=== PATIENT | male | born 1970 | race Caucasian/White ===

== ENCOUNTER 2016-10-20 19:53 | Emergency (ER) | payer SELFPAY ==
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
[2016-10-20] MEDS ORDERED: SODIUM CHLORIDE 0.9% 50ML 50 ML ONE (22:03)
[2016-10-20] MEDS: ENALAPRILAT INJ 1.25 MG/ML VIAL IV ONE (22:05)
[2016-10-20] MEDS ORDERED: LEVALBUTEROL NEBS 1.25 MG/3 ML VIAL NEB ONE (22:05)
[2016-10-20] MEDS ORDERED: SODIUM CHLORIDE 0.9% 1000ML 1,000 ML IVS ONE (22:49)
[2016-10-21 01:12] VITALS: BP 144/82; TEMP 99.8; O2SAT 95
[2016-10-21] MEDS: ENALAPRILAT INJ 1.25 MG/ML VIAL IV ONE (01:20)
== END 2016-10-20 23:50 | disposition short-term general hospital (02) ==
LOC: ER 19:53
DX: R06.02 Shortness of breath (principal); R00.0 Tachycardia, unspecified; R06.82 Tachypnea, not elsewhere classified; R50.9 Fever, unspecified; R79.89 Other specified abnormal findings of blood chemistry; F17.210 Nicotine dependence, cigarettes, uncomplicated
CPT/HCPCS: 36415; 71260; 74177; 80053; 80307; 80320; 81001; 82550; 82553; 83735; 83880; 84484; 85025; 85379; 93005; 94640; 94760; A4216; J2060; J7030; J7614

== ENCOUNTER → 2020-02-22 | Outpatient (CLI) | payer OTHER ==
--- NOTE | 2020-02-23 08:52 | US ---
EXAM DESCRIPTION: Soft Tissue,Abdomen: ULTRASOUND. CLINICAL HISTORY: 49 years Male HERNIA OF ABD WALL COMPARISON: CT scan abdomen and pelvis October 2016. "No significant ventral or inguinal hernia." TECHNIQUE: Transcutaneous scanning: Mercedes-scale and Doppler modes. FINDINGS: A defect is noted on the anterior abdominal wall at the area of palpation. Limited visualization. Possibly 2 hernias abutting each other or a hernia containing 2 separate sacs peritoneum. Peristalsis of bowel within the hernia which partially with through into the abdominal cavity during the examination, but hernia opening remained the same. No abnormal bowel seen within the hernia. No dominant solid mass, fluid collection, or cyst within the hernia. IMPRESSION: Single ventral hernia containing 2 hernia sacs or 2 adjacent hernias. Bowel within the hernia but not strangulated, and no other signs of hernia complications. Consider follow-up CT scan abdomen and pelvis with IV contrast if findings are not commensurate with clinical findings. Electronically signed by: Jared Winters MD 02/23/2020 8:51 AM CDT
== END ==
LOC: US 15:31
PROVIDERS: ATTEND Nurse Practitioner Family
DX: K43.6 Other and unspecified ventral hernia with obstruction, without gangrene (principal)

== ENCOUNTER → 2020-03-09 | Outpatient (CLI) | payer OTHER ==
--- NOTE | 2020-03-09 13:37 | CT ---
EXAM DESCRIPTION: Abdoment/Pelvis w/o Contrast CLINICAL HISTORY: 49 years, Male, HERNIA OF ABDOMINAL WALL COMPARISON: CT abdomen and pelvis report dated 10/20/2016. TECHNIQUE: CT of the abdomen and pelvis is performed without IV or p.o. contrast. Multiplanar reconstructions were obtained. FINDINGS: Partially limited evaluation without intravenous contrast. The lung bases are clear aside from left lower lobe small calcified granuloma. The Liver is mildly enlarged measuring 19 cm in craniocaudad dimension. There is mild diffuse fatty infiltration of the liver. The spleen, pancreas, adrenals are unremarkable. The gallbladder is normal without calcified gallstones. The kidneys are normal in size and contour. Few bilateral nonobstructing lithiasis (measuring up to 1 mm on the right side and 3 mm on the left side). No obstructing ureteral stone. No hydronephrosis or perinephric fluid collection. A small to moderate-sized supraumbilical fat-containing ventral hernia is present with the hernia neck measuring approximately 2.2 x 2.7 cm. Part of the transverse colon and omental fat herniates through the fascial defect. Small nodular focus within the hernia sac may be related to a small focus of fat necrosis (series 2 image 83). The transverse colon itself remains intraperitoneal. No focal bowel wall thickening or bowel obstruction. The appendix is surgically absent. No free fluid within the pelvis. Coarse prostatic calcifications are noted. Mild circumferential wall thickening may be related to partially decompressed state. Few mildly prominent gastrohepatic and upper retroperitoneal lymph nodes are noted, likely reactive. Right inferior pubic symphysis postmastoid remodeling, unchanged. No acute osseous abnormality. IMPRESSION: 1. Supraumbilical fat-containing ventral hernia. No bowel involvement. 2. Bilateral nonobstructing nephrolithiasis. No hydronephrosis. 3. Diffuse fatty infiltration of the liver. This exam was performed according to our departmental dose-optimization program, which includes automated exposure control, adjustment of the mA and/or kV according to patient size and/or use of iterative reconstruction technique. Electronically signed by: Vinicius Moreno DO 03/09/2020 1:35 PM CDT
== END ==
LOC: CT 09:30
PROVIDERS: ATTEND Surgery
DX: K43.6 Other and unspecified ventral hernia with obstruction, without gangrene (principal); N20.0 Calculus of kidney; K76.0 Fatty (change of) liver, not elsewhere classified

== ENCOUNTER 2020-03-19 06:05 | Day surgery (SDC) | payer OTHER ==
--- NOTE | 2020-03-15 16:41 | RAD ---
EXAM DESCRIPTION: Chest,2 Views CLINICAL HISTORY: 49 years Male, surgical clearance COMPARISON: 08 March 2011 TECHNIQUE: PA/lateral FINDINGS: There is no cardiac or pulmonary abnormality. The lungs are clear. There is no effusion. IMPRESSION: 1. Normal two-view chest. Electronically signed by: Narendra Reis MD 03/15/2020 4:39 PM CDT
[2020-03-19] MEDS ORDERED: DEXAMETHASONE INJ 10 MG/ML VIAL ONE (07:00)
[2020-03-19] MEDS ORDERED: SODIUM CHLORIDE 0.9% 50 ML VIAL ONE (07:00)
[2020-03-19] MEDS ORDERED: LIDOCAINE 1% 10 ML VIAL INJ ONE (07:00)
[2020-03-19] MEDS ORDERED: PROPOFOL 200 MG/20 ML VIAL IV ONE (07:00)
[2020-03-19] MEDS ORDERED: MAGNESIUM SULFATE INJ 1 GM/2 ML VIAL ONE (07:00)
[2020-03-19] MEDS ORDERED: diphenhydrAMINE HCL 50 MG/ML VIAL ONE (07:00)
[2020-03-19] MEDS ORDERED: KETOROLAC TROMETHAMINE INJ 30 MG/ML VIAL ONE (07:00)
[2020-03-19] MEDS ORDERED: LACTATED RINGERS 1,000 ML ONE (07:05)
[2020-03-19] MEDS ORDERED: SODIUM CHL 0.9% 100ML MINI-BAG 100 ML IVPB ONE (07:05)
[2020-03-19] MEDS ORDERED: ceFAZolin SODIUM 1 GM VIAL ONE (07:05)
[2020-03-19] MEDS ORDERED: BUPIVACAINE 0.25% W/EPI 50 ML VIAL INJ ONE ×2 (07:08→08:34)
[2020-03-19] MEDS ORDERED: LACTATED RINGERS 1,000 ML IVS ONE (07:45)
[2020-03-19] MEDS ORDERED: fentaNYL CITRATE INJ 50 MCG/ML AMP ONE (07:55)
[2020-03-19] MEDS ORDERED: KETAMINE HCL 100 MG/ML VIAL ONE (07:55)
[2020-03-19] MEDS ORDERED: DEXMEDETOMIDINE HCL 200 MCG/2 ML INJ IV ONE (07:55)
[2020-03-19] MEDS ORDERED: ROCURONIUM BROMIDE 10 MG/ML VIAL ONE (07:55)
[2020-03-19] MEDS ORDERED: MIDAZOLAM INJ 2 MG/2 ML VIAL ONE ×2 (07:56→08:06)
[2020-03-19] MEDS ORDERED: FAMOTIDINE 10 MG/ML ML IV ONE (07:56)
[2020-03-19] MEDS ORDERED: SUGAMMADEX SODIUM 200 MG/2 ML VIAL IV ONE (09:15)
[2020-03-19] MEDS ORDERED: LACTATED RINGERS 300 ML IVS ONE (09:26)
[2020-03-19] MEDS ORDERED: LEVALBUTEROL NEBS 1.25 MG/3 ML VIAL NEB ONE (09:39)
--- NOTE | 2020-03-19 09:46 | OP ---
DATE OF PROCEDURE: 03/19/20 PREOPERATIVE DIAGNOSIS: 1. Incarcerated incisional hernia. POSTOPERATIVE DIAGNOSIS: 1. Incarcerated incisional hernia. PROCEDURE: 1. Repair of incarcerated incisional hernia with Ventralex hernia patch. SURGEON: Sergio Day MD. UI ARCHITECT: None. ANESTHESIA: General endotracheal anesthesia and local infiltration of 1% lidocaine. INDICATION: The patient is a 49-year-old male who had developed a tender mass in his midline incision above his umbilicus. It is tender and nonreducible. He has undergone a CT scan which revealed the defect to be just over 2 cm by approximately 1 cm with a large amount of incarcerated tissue. The patient was brought to the Surgical Suite today for repair of same after the risks, benefits and alternatives to the procedure were discussed and accepted and he was given preoperative Ancef. FINDINGS: The defect as noted was just over 2 cm by 1 cm with the long axis being vertical. There was omentum and probably a small knuckle of bowel within the hernia sac. All the tissues appeared to be viable. PROCEDURE: After adequate general endotracheal anesthesia was obtained, the patient was prepped and draped in the usual sterile manner. A surgical time-out was taken. At this point, the previous midline incision above the umbilicus was infiltrated with local anesthetic. The skin was incised and dissection was carried down through the skin and into the subcutaneous tissue. When this was done, the hernia sac was identified. It was dissected free circumferentially and then dissected from the incarcerated contents using blunt dissection and electrocautery. When this was done, it was reduced below the floor of the fascia. The inside surface of the fascia was inspected and carefully dissected free in all directions for approximately 3 cm. When this was done, a 6.2 cm Ventralex mesh was introduced into the defect. It was oriented with the tags vertically. When this was done, the defect was closed with interrupted [id number] sutures of #1 PDS with the two central sutures including the mesh wings. The wings were then trimmed. The sutures were then tightened and tied sequentially. The subcutaneous tissues were irrigated with saline copiously. Hemostasis was noted to be adequate. Subcutaneous tissues were reapproximated with interrupted 3-0 sutures. The skin edges were approximated with skin stapler. Sterile pressure dressing was applied. An abdominal binder was applied. The patient was awakened and taken to the Recovery Room in good and stable condition. Estimated blood loss was less than 50 mL. All sponge, needle and instrument counts were correct. #[id number] [facility]
[2020-03-19] MEDS ORDERED: HYDROcodone 10MG/APAP 325MG 1 EA TAB PO ONE (10:27)
[2020-03-19] MEDS ORDERED: HYDROcodone 10MG/APAP 325MG 1 EA TAB ONE (10:27)
[2020-03-19 11:55] VITALS: BP 112/58; TEMP 97.2; O2SAT 95
== END 2020-03-19 10:55 | disposition home or self-care (01) ==
LOC: AMB 06:05
PROVIDERS: ATTEND Surgery
DX: K43.0 Incisional hernia with obstruction, without gangrene (principal); F17.200 Nicotine dependence, unspecified, uncomplicated; E66.9 Obesity, unspecified
CPT/HCPCS: 00832; 36415; 49561; 49568; 71046; 80053; 81001; 85025; 93005; A4216; J0690; J1100; J1200; J1885; J2250; J3010; J3475; J3490; J7050; J7120; J7614

== ENCOUNTER 2020-08-02 18:01 | Emergency (ER) | payer SELFPAY ==
[2020-08-02] MEDS ORDERED: SODIUM CHLORIDE 0.9% (FLUSH) 10 ML SYG IV PRN (18:31)
[2020-08-02] MEDS ORDERED: SODIUM CHLORIDE 0.9% 1000ML 1,000 ML IVS ONE (18:32)
[2020-08-02 18:51] VITALS: TEMP 99.1; O2SAT 98
[2020-08-02 19:16] VITALS: BP 97/69
--- NOTE | 2020-08-02 19:42 | RAD ---
XR CHEST 1 VIEW HISTORY: Syncope. COMPARISON: 03/15/2020 FINDINGS: The heart size is within normal limits. There is no pulmonary vascular congestion. No consolidation, pleural effusion, or pneumothorax is seen. No acute bony findings are seen. IMPRESSION: No evidence of acute cardiopulmonary disease. Electronically signed by: Matthew Lyons MD 08/02/2020 7:40 PM FINANCE SPECIALIST
--- NOTE | 2020-08-02 19:55 | ED.PDOC ---
History of Present Illness - General Chief Complaint: Drug or Alcohol Abuse Stated Complaint: passed out in yard / alcohol intox Time Seen by Provider: 08/02/20 18:15 Source: patient, RN notes reviewed, Vital Signs reviewed, EMS Exam Limitations: intoxication - History of Present Illness Initial Comments: Patient is a 49-year-old white male who by EMS report have been working on his truck, drinking and was found passed out unresponsive in his front yard. In discussion with his daughter she states that her father called her saying he was having chest pain and then she heard a thud and called 911. Patient is belligerent in the ED and is ripping out his IV and smells of alcohol. Patient states that the chest pain only lasted a second and radiated to his left arm. The pain was sharp and stabbing in nature. He denied any shortness of breath. Patient denies any headache, blurry vision, dizziness, nausea, vomiting, diarrhea. This occurred just prior to arrival. His pain did resolve prior to arrival. Timing/Duration: 1 hour Severity: moderate Improving Factors: nothing Worsening Factors: nothing Associated Symptoms: chest pain, shortness of breath Allergies/Adverse Reactions: Allergies NO KNOWN ALLERGY Allergy (Verified 10/20/16 20:28) Home Medications: Ambulatory Orders NK 03/15/20 Review of Systems - Review of Systems Constitutional: States: no symptoms reported, see HPI. Denies: chills, fever, malaise, weakness EENTM: States: no symptoms reported. Denies: eye pain, blurred vision, double vision Respiratory: States: no symptoms reported. Denies: cough, short of breath, wheezing Cardiology: States: see HPI, chest pain, syncope. Denies: palpitations Gastrointestinal/Abdominal: States: no symptoms reported. Denies: abdominal pain, diarrhea, nausea, vomiting Genitourinary: States: no symptoms reported. Denies: dysuria, frequency Skin: States: no symptoms reported. Denies: change in color, rash Neurological: States: no symptoms reported. Denies: headache, numbness, tingling, tremors, weakness Endocrine: States: no symptoms reported. Denies: increased hunger, increased thirst, increased urine Hematologic/Lymphatic: States: no symptoms reported. Denies: blood clots, easy bleeding Unable to Obtain Due To: other - Alcohol intoxication All other Systems: Reviewed and Negative Past Medical History (General) - Patient Medical History Hx Congestive Heart Failure: No Hx Diabetes: No Hx MRSA: No - Vaccination History Hx Influenza Vaccination: No - Social History Hx Tobacco Use: Yes Hx Alcohol Use: Yes - Activities of Daily Living Hospice Agency (if applicable):: None - Female History Patient is a Female of Child Bearing Age (10 -59 yrs old): No Family Medical History - Family History Mother Family History: Unknown Physical Exam - Physical Exam General Appearance: Agitated, Alert, Anxious, Obvious distress, Obese, Unkempt, Well Developed, Well Hydrated, Well Nourished, Other - Pt smells of ETOH Eye Exam: bilateral normal Ears, Nose, Throat: hearing grossly normal, normal ENT inspection, normal pharynx Neck: non-tender, full range of motion, supple Respiratory: chest non-tender, lungs clear, normal breath sounds, no respiratory distress Cardiovascular/Chest: normal peripheral pulses, regular rate, rhythm, no edema, no gallop, no JVD, no murmur Peripheral Pulses: radial,right: 2+, radial,left: 2+ Gastrointestinal/Abdominal: normal bowel sounds, non tender, soft Back Exam: normal inspection, no CVA tenderness, no vertebral tenderness Extremity: normal range of motion, non-tender, normal inspection Neurologic: contract administration specialist II-XII nml as tested, no motor/sensory deficits, alert, other - agittated Skin Exam: normal color, warm/dry Lymphatic: no adenopathy Progress - Progress Progress: Differential diagnosis: Acute IL, GERD, pneumonia, PE among others. 08/02/20 21:04 Patient was very belligerent when he came in and threatening to myself and staff. [place] [employer] was called and patient calm down and allowed us to evaluate him. I recommended to patient that he have repeat cardiac enzymes as well as admission for further evaluation and treatment. Patient refused and left AGAINST MEDICAL ADVICE with his daughter. I did explain to the patient and daughter the risks associated with leaving AMA including cardiac damage, cardiac crippling, or stroke among others. Patient though smelling of alcohol did not slur his words and appeared to be competent to make an informed decision. Patient states he does not want to stay because he does not have money or insurance for this type of foolishness. Patient was offered discharge instructions, referrals and to return at any time. Patient refused all of the above. Syed Santiago M.D. #[id number] - Results/Orders Results/Orders: EKG performed 02 August 2020 at 1807 hrs.: Normal sinus rhythm at 80 bpm, normal axis deviation, no ST or T wave changes concerning for ischemia, normal EKG. No comparison EKG available at this time. XR CHEST 1 VIEW HISTORY: Syncope. COMPARISON: 03/15/2020 FINDINGS: The heart size is within normal limits. There is no pulmonary vascular congestion. No consolidation, pleural effusion, or pneumothorax is seen. No acute bony findings are seen. IMPRESSION: No evidence of acute cardiopulmonary disease. Electronically signed by: Matthew Lyons MD 08/02/2020 7:40 PM WATER METER READER 08/02/20 18:31 IV Care:Saline Lock per Protoc QSHIFT Telemetry ONCE Sodium Chloride 0.9% (Flush) [Saline Flush Syringe] 3 ml IV PRN PRN 08/02/20 18:45 EKG STAT 08/03/20 09:00 Pulse Ox Daily Laboratory Results - last 24 hr 08/02/20 08/02/20 08/02/20 19:03 19:03 20:20 WBC 8.5 RBC 4.76 Hgb 15.7 Hct 45.9 MCV 96.5 H MCH 33.0 H MCHC 34.2 RDW 14.0 Plt Count 242 MPV 6.7 L Absolute Neuts (auto) 6.80 Absolute Lymphs (auto) 1.20 Absolute Monos (auto) 0.40 Absolute Eos (auto) 0.10 Absolute Basos (auto) 0.10 Neutrophils % 80.3 H Lymphocytes % 14.1 L Monocytes % 4.1 Eosinophils % 0.6 L Basophils % 0.9 PT 9.4 INR < 1.00 PTT (SP) 23.0 Sodium 135 Potassium 3.9 Chloride 100 L Carbon Dioxide 24 Anion Gap 14.9 BUN 10 Creatinine 0.93 BUN/Creatinine Ratio 10.8 Random Glucose 95 Serum Osmolality 268.9 L Calcium 8.2 L Magnesium 2.2 Total Bilirubin 0.3 Direct Bilirubin 0.1 Indirect Bilirubin 0.2 AST 28 ALT 32 Alkaline Phosphatase 51 Creatine Kinase 292 H* CK-MB (CK-2) 4.2 CK-MB (CK-2) % 1.44 Troponin I < 0.02 B-Natriuretic Peptide 41.5 Serum Total Protein 7.0 Albumin 3.8 Urine Color Yellow Urine Appearance Clear Urine pH 6.0 Ur Specific [place] 1.015 Urine Protein Negative Urine Glucose (UA) Negative Urine Ketones Negative Urine Blood Trace-lysed H Urine Nitrite Negative Urine Bilirubin Negative Urine Urobilinogen 0.2 Ur Leukocyte Esterase Negative Urine RBC 0-1 Urine WBC 0 Ur Epithelial Cells 0 Urine Bacteria 0 Ethyl Alcohol 274.10 H* Vital Signs 08/02/20 08/02/20 08/02/20 18:31 18:46 19:01 Temperature 99.1 F Pulse Rate [ 82 80 82 pulse ox] Respiratory 16 22 16 Rate Blood Pressure 104/81 97/69 [Left Arm] O2 Sat by Pulse 98 Oximetry 08/02/20 20:00 Temperature Pulse Rate [ 77 pulse ox] Respiratory 16 Rate Blood Pressure [Left Arm] O2 Sat by Pulse 98 Oximetry Departure - Departure Clinical Impression: Syncope and collapse Chest pain Qualifiers: Chest pain type: unspecified Qualified Code(s): R07.9 - Chest pain, unspecified Alcohol intoxication Qualifiers: Complication of substance-induced condition: uncomplicated Qualified Code(s): F10.920 - Alcohol use, unspecified with intoxication, uncomplicated Time of Disposition: 21:19 Disposition: Left Against Medical Advice Condition: Fair Departure Forms: ED Discharge - Pt. Copy, Patient Portal Self Enrollment Instructions: DI for Drug Overdose in Adults Diet: resume usual diet Activity: walking as tolerated Referrals: Jennifer Sanchez NP [Primary Care Provider] - 1-2 Days Home Medications: Ambulatory Orders NK 03/15/20
== END 2020-08-02 21:05 | disposition left against medical advice (07) ==
LOC: ER 18:01
DX: R07.9 Chest pain, unspecified (principal); R55 Syncope and collapse; F10.129 Alcohol abuse with intoxication, unspecified; Z53.29 Procedure and treatment not carried out because of patient's decision for other reasons; Z87.891 Personal history of nicotine dependence
CPT/HCPCS: 36415; 71045; 80048; 80076; 80320; 81001; 82550; 82553; 83880; 84484; 85025; 85610; 85730; 93005; J7030